=== PATIENT | male | born 1945 | race Caucasian/White ===

== ENCOUNTER 2017-03-28 19:43 | Inpatient (IN) | payer MEDICAID, MEDICARE ==
[~2017-03-28] VITALS: Ht 182.9 cm; Wt 65.7 kg
[~2017-03-28 19:43] MED LIST: ALBU0.63 NEB; ALBU6.7H INH; ASPI-515 PO; BUDE10.2 INH; CARV3.1212 PO; CARV6.2512 PO; CLOP75TA22 PO; DOXY100C15 PO; FLUT1DIS3 INH; FURO80TA77 PO; HYDR12.53 PO; IPRA4AER INH; ISOS30TA19 PO; LEVO750T26 PO; LISI-167 PO; LISI5TAB7 PO; LOPE2TAB59 PO; LORA0.5T PO; LORA1TAB PO; METR500T PO; MIRT15TA4 PO; MISO200T4 PO; OXYC5CAP4 PO; POTA20TA91 PO; PRED20TA PO; SIMV40TA3 PO; TIOT18CA INH
[2017-03-28] MEDS ORDERED: methylPREDNISolone SOD SUCC 125 MG/2 ML ONE (19:54)
[2017-03-28] MEDS ORDERED: MAGNESIUM SULFATE PMX 2GM/50ML 50 ML IVPB ONE (20:00)
[2017-03-28] MEDS ORDERED: methylPREDNISolone SOD SUCC 125 MG/2 ML IVP ONE (20:00)
[2017-03-28] MEDS ORDERED: ALBUTEROL/IPRATROPIUM 2.5MG/0.5MG, 3 ML ONE ×2 (20:00→22:30)
[2017-03-28] MEDS ORDERED: SODIUM CHLORIDE FLUSH 10ML SYR IVF ONE (20:00)
[2017-03-28] MEDS ORDERED: ALBUTEROL/IPRATROPIUM 2.5MG/0.5MG, 3 ML NPPB SCH (20:00)
[2017-03-28 20:12] LABS: ASPARTATE AMINO TRANSFERASE 21 U/L (15-37); BLOOD UREA NITROGEN 21 mg/dL (7-18)
[2017-03-28 20:24] LABS: ABG COLLECTION SITE RIGHT RADIAL; COLLATERAL CIRCULATION TESTING NORMAL
[2017-03-28 20:49] LABS: DIFF TOTAL CELLS COUNTED 100 CELL DIFF
[2017-03-28 20:51] LABS: VERIFY COUNTS? YES
[2017-03-28] MEDS ORDERED: LISI-170 PO (20:51)
[2017-03-28] MEDS ORDERED: CHOL10003 PO (20:51)
[2017-03-28] MEDS ORDERED: BUDE10.2 INH (20:51)
[2017-03-28] MEDS ORDERED: NITR0.4T SL (20:51)
[2017-03-28 20:52] LABS: ANISOCYTOSIS 1+; OVALOCYTES 1+
[2017-03-28 20:56] LABS: LARGE PLATELETS 1+
[2017-03-28] MEDS ORDERED: SODIUM CHLORIDE 0.9% 1,000ML IVBOLUS ONE (21:00)
[2017-03-28] MEDS ORDERED: SODIUM CHLORIDE FLUSH 10ML SYR IVF PRN (21:30)
[2017-03-28] MEDS ORDERED: DEXTROSE 4 GM TAB.CHEW PO PRN (22:00)
[2017-03-28] MEDS: INSULIN ASPART 100 UNITS/ML, PEN SQ-INSULIN SCH (22:00)
[2017-03-28] MEDS: methylPREDNISolone SOD SUCC 125 MG/2 ML IVPush SCH (22:00)
[2017-03-28] MEDS ORDERED: GLUCAGON 1 MG IM PRN (22:00)
[2017-03-28] MEDS ORDERED: NITROGLYCERIN 0.4 MG BOTTLE (25 TABS) SL PRN (22:00)
[2017-03-28] MEDS ORDERED: DEXTROSE 50%, 50ML SYRINGE IVPush PRN (22:00)
[2017-03-28] MEDS: ALBUTEROL/IPRATROPIUM 2.5MG/0.5MG, 3 ML NPPB SCH (22:30)
[2017-03-28] MEDS: ENOXAPARIN 40 MG/0.4 ML SQ SCH (22:30)
[2017-03-28] MEDS ORDERED: PROMETHAZINE 25 MG/ML, 1ML IM PRN (22:30)
[2017-03-28] MEDS ORDERED: FUROSEMIDE 20 MG/2 ML IV ONE (22:30)
[2017-03-28] MEDS ORDERED: ONDANSETRON 2MG/ML, 2ML IVPush PRN (22:30)
[2017-03-28 23:00] VITALS: BP 152/94
[2017-03-28] MEDS: DOXYCYCLINE 100 MG in DEXTROSE 5% 250 ML IV SCH (23:10)
[2017-03-28] MEDS: ACETAMINOPHEN 325 MG TABLET PO PRN (23:42)
[2017-03-29 02:14] LABS: IS PT STATUS REG ER OR PRE ER? NO
[2017-03-29] MEDS: ALBUTEROL/IPRATROPIUM 2.5MG/0.5MG, 3 ML NPPB SCH ×6 (02:17→23:34)
[2017-03-29 04:00] VITALS: BP 120/80
[2017-03-29] MEDS: methylPREDNISolone SOD SUCC 125 MG/2 ML IVPush SCH ×4 (04:12→21:30)
[2017-03-29 04:19] LABS: ABG COLLECTION SITE RIGHT RADIAL; COLLATERAL CIRCULATION TESTING NORMAL
[2017-03-29 04:32] LABS: ASPARTATE AMINO TRANSFERASE 21 U/L (15-37); BLOOD UREA NITROGEN 21 mg/dL (7-18)
[2017-03-29 04:44] LABS: IS PT STATUS REG ER OR PRE ER? NO
[2017-03-29] MEDS: LISINOPRIL 10 MG TABLET PO SCH (08:32)
[2017-03-29] MEDS: CLOPIDOGREL 75 MG TABLET PO SCH (08:33)
[2017-03-29] MEDS: CHOLECALCIFEROL 1,000 UNIT TABLET PO SCH (08:33)
[2017-03-29] MEDS: INSULIN ASPART 100 UNITS/ML, PEN SQ-INSULIN SCH ×4 (08:33→21:13)
[2017-03-29] MEDS: ISOSORBIDE DINITRATE 30 MG TABLET PO SCH (08:33)
[2017-03-29] MEDS ORDERED: FAMOTIDINE 20 MG/2 ML IVPush SCH (09:00)
[2017-03-29] MEDS ORDERED: SODIUM CHLORIDE FLUSH 10ML SYR IVF SCH (09:00)
[2017-03-29] MEDS: DOXYCYCLINE 100 MG in DEXTROSE 5% 250 ML IV SCH (11:08)
[2017-03-29] MEDS: ACETAMINOPHEN 325 MG TABLET PO PRN (17:35)
[2017-03-29] MEDS ORDERED: GLUCAGON 1 MG IM PRN (20:30)
[2017-03-29] MEDS ORDERED: DEXTROSE 50%, 50ML SYRINGE IVPush PRN (20:30)
[2017-03-29] MEDS ORDERED: DEXTROSE 4 GM TAB.CHEW PO PRN (20:30)
[2017-03-29] MEDS: SODIUM CHLORIDE FLUSH 10ML SYR IVF SCH (21:13)
[2017-03-29] MEDS: FAMOTIDINE 20 MG TABLET PO SCH (21:15)
[2017-03-29] MEDS: ENOXAPARIN 40 MG/0.4 ML SQ SCH (21:24)
[2017-03-29] MEDS: DOXYCYCLINE 100MG TABLET PO SCH (23:29)
[2017-03-30] MEDS: ALBUTEROL/IPRATROPIUM 2.5MG/0.5MG, 3 ML NPPB SCH ×6 (04:03→21:18)
[2017-03-30 04:05] VITALS: BP 163/72
[2017-03-30] MEDS: methylPREDNISolone SOD SUCC 125 MG/2 ML IVPush SCH ×4 (04:27→21:33)
[2017-03-30] MEDS: INSULIN ASPART 100 UNITS/ML, PEN SQ-INSULIN SCH ×4 (06:33→20:39)
[2017-03-30] MEDS: FAMOTIDINE 20 MG TABLET PO SCH ×2 (07:38→20:30)
[2017-03-30] MEDS: ISOSORBIDE DINITRATE 30 MG TABLET PO SCH (07:38)
[2017-03-30] MEDS: CHOLECALCIFEROL 1,000 UNIT TABLET PO SCH (07:38)
[2017-03-30] MEDS: LISINOPRIL 10 MG TABLET PO SCH ×3 (07:38→20:36)
[2017-03-30] MEDS: CLOPIDOGREL 75 MG TABLET PO SCH (07:38)
[2017-03-30] MEDS: DOXYCYCLINE 100MG TABLET PO SCH ×2 (11:39→23:15)
[2017-03-30] MEDS: SODIUM CHLORIDE FLUSH 10ML SYR IVF SCH ×2 (11:41→20:30)
[2017-03-30] MEDS: ENOXAPARIN 40 MG/0.4 ML SQ SCH (21:33)
[2017-03-30] MEDS: hydrALAzine 20 MG/ML, 1ML IV PRN (23:36)
[2017-03-31] MEDS: ALBUTEROL/IPRATROPIUM 2.5MG/0.5MG, 3 ML NPPB PRN (00:01)
[2017-03-31] MEDS ORDERED: FENTANYL PF 100 MCG/2ML ONE ×2 (00:22→05:31)
[2017-03-31] MEDS ORDERED: FENTANYL PF 100 MCG/2ML IV ONE ×2 (00:30→05:30)
[2017-03-31] MEDS: ALBUTEROL/IPRATROPIUM 2.5MG/0.5MG, 3 ML NPPB SCH ×6 (03:56→22:05)
[2017-03-31 04:00] VITALS: BP 151/71
[2017-03-31] MEDS: methylPREDNISolone SOD SUCC 125 MG/2 ML IVPush SCH ×4 (04:23→21:27)
[2017-03-31 04:45] LABS: BLOOD UREA NITROGEN 29 mg/dL (7-18)
[2017-03-31] MEDS: hydrALAzine 20 MG/ML, 1ML IV PRN (05:11)
[2017-03-31] MEDS: INSULIN ASPART 100 UNITS/ML, PEN SQ-INSULIN SCH ×4 (07:00→21:15)
[2017-03-31] MEDS: ISOSORBIDE DINITRATE 30 MG TABLET PO SCH (08:58)
[2017-03-31] MEDS: CLOPIDOGREL 75 MG TABLET PO SCH (08:58)
[2017-03-31] MEDS: CHOLECALCIFEROL 1,000 UNIT TABLET PO SCH (08:58)
[2017-03-31] MEDS: LISINOPRIL 10 MG TABLET PO SCH ×2 (08:59→21:12)
[2017-03-31] MEDS: FAMOTIDINE 20 MG TABLET PO SCH ×2 (09:00→21:00)
[2017-03-31] MEDS: SODIUM CHLORIDE FLUSH 10ML SYR IVF SCH ×2 (09:02→21:12)
[2017-03-31] MEDS: ENALAPRILAT 1.25 MG/ML, 2ML IV PRN (09:09)
[2017-03-31] MEDS: HYDROmorphone 2 MG/ML, 1ML IVPush PRN ×2 (11:04→16:22)
[2017-03-31] MEDS: DOXYCYCLINE 100MG TABLET PO SCH ×2 (12:29→23:28)
[2017-03-31] MEDS: ENOXAPARIN 40 MG/0.4 ML SQ SCH (21:27)
[2017-04-01] MEDS: methylPREDNISolone SOD SUCC 125 MG/2 ML IVPush SCH ×4 (04:03→22:38)
[2017-04-01] MEDS: HYDROmorphone 2 MG/ML, 1ML IVPush PRN (04:03)
[2017-04-01 04:13] VITALS: BP 173/80
[2017-04-01] MEDS: INSULIN ASPART 100 UNITS/ML, PEN SQ-INSULIN SCH ×4 (06:23→20:54)
[2017-04-01] MEDS: ALBUTEROL/IPRATROPIUM 2.5MG/0.5MG, 3 ML NPPB SCH ×5 (06:40→21:21)
[2017-04-01] MEDS: ISOSORBIDE DINITRATE 30 MG TABLET PO SCH (07:22)
[2017-04-01] MEDS: FAMOTIDINE 20 MG TABLET PO SCH ×3 (07:22→20:57)
[2017-04-01] MEDS: CLOPIDOGREL 75 MG TABLET PO SCH (07:22)
[2017-04-01] MEDS: LISINOPRIL 10 MG TABLET PO SCH ×3 (07:23→21:14)
[2017-04-01] MEDS: CHOLECALCIFEROL 1,000 UNIT TABLET PO SCH (07:24)
[2017-04-01] MEDS: SODIUM CHLORIDE FLUSH 10ML SYR IVF SCH ×2 (11:50→20:44)
[2017-04-01] MEDS: DOXYCYCLINE 100MG TABLET PO SCH ×2 (11:50→22:39)
[2017-04-01] MEDS: ENOXAPARIN 40 MG/0.4 ML SQ SCH (22:30)
[2017-04-01] MEDS: ENALAPRILAT 1.25 MG/ML, 2ML IV PRN (22:54)
[2017-04-02] MEDS: ALBUTEROL/IPRATROPIUM 2.5MG/0.5MG, 3 ML NPPB PRN (00:29)
[2017-04-02] MEDS: ACETAMINOPHEN 325 MG TABLET PO PRN (00:40)
[2017-04-02] MEDS: ENALAPRILAT 1.25 MG/ML, 2ML IV PRN ×2 (01:13→03:40)
[2017-04-02] MEDS: methylPREDNISolone SOD SUCC 125 MG/2 ML IVPush SCH ×4 (03:45→23:03)
[2017-04-02 04:00] VITALS: BP 148/95
[2017-04-02] MEDS: ALBUTEROL/IPRATROPIUM 2.5MG/0.5MG, 3 ML NPPB SCH ×4 (05:21→15:36)
[2017-04-02] MEDS: INSULIN ASPART 100 UNITS/ML, PEN SQ-INSULIN SCH ×4 (07:00→20:55)
[2017-04-02] MEDS: FAMOTIDINE 20 MG TABLET PO SCH ×2 (08:20→20:52)
[2017-04-02] MEDS: LISINOPRIL 10 MG TABLET PO SCH (08:20)
[2017-04-02] MEDS: CLOPIDOGREL 75 MG TABLET PO SCH (08:20)
[2017-04-02] MEDS: ISOSORBIDE DINITRATE 30 MG TABLET PO SCH (08:21)
[2017-04-02] MEDS: SODIUM CHLORIDE FLUSH 10ML SYR IVF SCH ×2 (08:44→20:52)
[2017-04-02] MEDS: CHOLECALCIFEROL 1,000 UNIT TABLET PO SCH (08:44)
[2017-04-02] MEDS ORDERED: LISINOPRIL 10 MG TABLET PO ONE (09:00)
[2017-04-02] MEDS: LORazepam INTENSOL 2 MG/ML PO PRN ×2 (09:46→21:02)
[2017-04-02] MEDS: DOXYCYCLINE 100MG TABLET PO SCH ×2 (11:18→23:05)
[2017-04-02] MEDS: LISINOPRIL 20 MG TABLET PO SCH (20:53)
[2017-04-02] MEDS: ENOXAPARIN 40 MG/0.4 ML SQ SCH (22:30)
[2017-04-03] MEDS: ACETAMINOPHEN 325 MG TABLET PO PRN (02:33)
[2017-04-03] MEDS: methylPREDNISolone SOD SUCC 125 MG/2 ML IVPush SCH ×4 (03:57→22:33)
[2017-04-03 04:00] VITALS: BP 165/99
[2017-04-03] MEDS: LORazepam INTENSOL 2 MG/ML PO PRN ×3 (06:04→20:06)
[2017-04-03] MEDS: ALBUTEROL/IPRATROPIUM 2.5MG/0.5MG, 3 ML NPPB SCH ×4 (06:47→20:00)
[2017-04-03] MEDS: INSULIN ASPART 100 UNITS/ML, PEN SQ-INSULIN SCH ×4 (07:00→20:53)
[2017-04-03] MEDS: ISOSORBIDE DINITRATE 30 MG TABLET PO SCH (07:47)
[2017-04-03] MEDS: CLOPIDOGREL 75 MG TABLET PO SCH (08:43)
[2017-04-03] MEDS: CHOLECALCIFEROL 1,000 UNIT TABLET PO SCH (08:43)
[2017-04-03] MEDS: LISINOPRIL 20 MG TABLET PO SCH ×2 (08:43→20:50)
[2017-04-03] MEDS: FAMOTIDINE 20 MG TABLET PO SCH ×2 (08:44→20:50)
[2017-04-03] MEDS: RISPERIDONE 1 MG TABLET PO SCH ×2 (08:58→20:50)
[2017-04-03] MEDS: SODIUM CHLORIDE FLUSH 10ML SYR IVF SCH ×2 (10:29→20:49)
[2017-04-03] MEDS: DOXYCYCLINE 100MG TABLET PO SCH ×2 (10:29→22:34)
[2017-04-03] MEDS: ENOXAPARIN 40 MG/0.4 ML SQ SCH (22:30)
[2017-04-04] MEDS: ACETAMINOPHEN 325 MG TABLET PO PRN (02:48)
[2017-04-04 04:00] VITALS: BP 159/65
[2017-04-04] MEDS: methylPREDNISolone SOD SUCC 125 MG/2 ML IVPush SCH ×4 (04:11→23:11)
[2017-04-04] MEDS: LORazepam INTENSOL 2 MG/ML PO PRN ×2 (06:05→23:49)
[2017-04-04] MEDS: ALBUTEROL/IPRATROPIUM 2.5MG/0.5MG, 3 ML NPPB SCH ×3 (06:47→15:32)
[2017-04-04] MEDS: FAMOTIDINE 20 MG TABLET PO SCH ×2 (07:55→20:12)
[2017-04-04] MEDS: CHOLECALCIFEROL 1,000 UNIT TABLET PO SCH (07:56)
[2017-04-04] MEDS: ISOSORBIDE DINITRATE 30 MG TABLET PO SCH (07:56)
[2017-04-04] MEDS: INSULIN ASPART 100 UNITS/ML, PEN SQ-INSULIN SCH ×4 (07:56→20:11)
[2017-04-04] MEDS: CLOPIDOGREL 75 MG TABLET PO SCH (07:56)
[2017-04-04] MEDS: DOXYCYCLINE 100MG TABLET PO SCH ×2 (09:56→23:21)
[2017-04-04] MEDS: LISINOPRIL 20 MG TABLET PO SCH ×2 (09:56→23:12)
[2017-04-04] MEDS: RISPERIDONE 1 MG TABLET PO SCH ×2 (09:57→20:12)
[2017-04-04] MEDS: SODIUM CHLORIDE FLUSH 10ML SYR IVF SCH ×2 (09:57→20:14)
[2017-04-04 13:23] VITALS: BP 191/83
[2017-04-04] MEDS ORDERED: ENALAPRILAT 1.25 MG/ML, 2ML ONE ×2 (13:31→20:00)
[2017-04-04] MEDS: ENALAPRILAT 1.25 MG/ML, 2ML IV PRN ×2 (13:34→20:12)
[2017-04-04 14:41] VITALS: BP 173/79
[2017-04-04] MEDS ORDERED: ALBUTEROL/IPRATROPIUM 2.5MG/0.5MG, 3 ML ONE (15:22)
[2017-04-04] MEDS ORDERED: LORazepam 2 MG/ML, 1ML ONE (20:00)
[2017-04-04 20:36] VITALS: BP 183/84
[2017-04-04] MEDS: ENOXAPARIN 40 MG/0.4 ML SQ SCH (23:11)
[2017-04-04 23:18] VITALS: BP 224/120
[2017-04-04] MEDS ORDERED: hydrALAzine 20 MG/ML, 1ML IV PRN (23:30)
[2017-04-05] MEDS ORDERED: ENALAPRILAT 1.25 MG/ML, 2ML ONE (00:04)
[2017-04-05] MEDS: ALBUTEROL/IPRATROPIUM 2.5MG/0.5MG, 3 ML NPPB SCH ×6 (00:30→23:00)
[2017-04-05] MEDS ORDERED: ALBUTEROL/IPRATROPIUM 2.5MG/0.5MG, 3 ML ONE ×3 (00:34→06:56)
[2017-04-05] MEDS ORDERED: HYDROmorphone 1 MG/ML, 1ML ONE (00:58)
[2017-04-05] MEDS: HYDROmorphone 2 MG/ML, 1ML IVPush PRN ×3 (00:58→21:19)
[2017-04-05] MEDS: ENALAPRILAT 1.25 MG/ML, 2ML IV PRN (00:59)
[2017-04-05 01:09] LABS: ABG COLLECTION SITE RIGHT BRACHIAL
[2017-04-05 01:22] LABS: ASPARTATE AMINO TRANSFERASE 26 U/L (15-37); BLOOD UREA NITROGEN 38 mg/dL (7-18)
[2017-04-05 02:23] LABS: ABG COLLECTION SITE RIGHT BRACHIAL
[2017-04-05 04:44] VITALS: BP 121/66
[2017-04-05] MEDS: methylPREDNISolone SOD SUCC 125 MG/2 ML IVPush SCH ×4 (04:47→20:02)
[2017-04-05 05:58] LABS: ABG COLLECTION SITE LEFT RADIAL; COLLATERAL CIRCULATION TESTING NORMAL
[2017-04-05] MEDS ORDERED: LORazepam 1MG TABLET ONE ×2 (07:36→14:09)
[2017-04-05] MEDS ORDERED: LORazepam INTENSOL 2 MG/ML PO PRN (08:00)
[2017-04-05] MEDS ORDERED: ONDANSETRON 2MG/ML, 2ML IVPush PRN (08:30)
[2017-04-05] MEDS: ENOXAPARIN 40 MG/0.4 ML SQ SCH (08:30)
[2017-04-05] MEDS ORDERED: hydrALAzine 20 MG/ML, 1ML IV PRN (08:30)
[2017-04-05] MEDS ORDERED: GLUCAGON 1 MG IM PRN ×2 (08:30→22:00)
[2017-04-05] MEDS ORDERED: DEXTROSE 4 GM TAB.CHEW PO PRN ×2 (08:30→22:00)
[2017-04-05] MEDS ORDERED: ACETAMINOPHEN 325 MG TABLET PO PRN (08:30)
[2017-04-05] MEDS ORDERED: NITROGLYCERIN 0.4 MG BOTTLE (25 TABS) SL PRN (08:30)
[2017-04-05] MEDS ORDERED: PROMETHAZINE 25 MG/ML, 1ML IM PRN (08:30)
[2017-04-05] MEDS ORDERED: ALBUTEROL/IPRATROPIUM 2.5MG/0.5MG, 3 ML NPPB PRN ×2 (08:30→22:00)
[2017-04-05] MEDS ORDERED: DEXTROSE 50%, 50ML SYRINGE IVPush PRN ×2 (08:30→22:00)
[2017-04-05] MEDS ORDERED: ENALAPRILAT 1.25 MG/ML, 2ML IV PRN (08:30)
[2017-04-05] MEDS: RISPERIDONE 1 MG TABLET PO SCH ×2 (08:58→21:13)
[2017-04-05] MEDS: FAMOTIDINE 20 MG TABLET PO SCH ×2 (08:59→21:13)
[2017-04-05] MEDS: SODIUM CHLORIDE FLUSH 10ML SYR IVF SCH ×2 (09:00→21:13)
[2017-04-05] MEDS: CHOLECALCIFEROL 1,000 UNIT TABLET PO SCH (09:00)
[2017-04-05] MEDS: LISINOPRIL 20 MG TABLET PO SCH ×2 (09:00→21:13)
[2017-04-05] MEDS: DOXYCYCLINE 100MG TABLET PO SCH ×2 (09:01→20:04)
[2017-04-05] MEDS: ISOSORBIDE DINITRATE 30 MG TABLET PO SCH (09:01)
[2017-04-05] MEDS ORDERED: ALBUTEROL/IPRATROPIUM 2.5MG/0.5MG, 3 ML NPPB SCH (11:00)
[2017-04-05] MEDS: CLOPIDOGREL 75 MG TABLET PO SCH (11:16)
[2017-04-05] MEDS: INSULIN ASPART 100 UNITS/ML, PEN SQ-INSULIN SCH ×3 (11:42→21:19)
[2017-04-05] MEDS: LORazepam INTENSOL 2 MG/ML PO PRN ×2 (14:09→21:59)
[2017-04-05] MEDS ORDERED: SODIUM BICARBONATE 4.2%, 5ML ONE (15:00)
[2017-04-06] MEDS: METOPROLOL 1 MG/ML, 5ML IVPush PRN ×2 (00:09→01:55)
[2017-04-06] MEDS: HYDROmorphone 2 MG/ML, 1ML IVPush PRN ×4 (01:55→13:39)
[2017-04-06] MEDS: methylPREDNISolone SOD SUCC 125 MG/2 ML IVPush SCH ×2 (01:55→09:01)
[2017-04-06] MEDS: ALBUTEROL/IPRATROPIUM 2.5MG/0.5MG, 3 ML NPPB SCH ×4 (03:00→11:00)
[2017-04-06 04:58] LABS: BLOOD UREA NITROGEN 44 mg/dL (7-18)
[2017-04-06] MEDS: INSULIN ASPART 100 UNITS/ML, PEN SQ-INSULIN SCH ×2 (07:00→11:00)
[2017-04-06] MEDS: ENOXAPARIN 40 MG/0.4 ML SQ SCH (08:30)
[2017-04-06] MEDS: ISOSORBIDE DINITRATE 30 MG TABLET PO SCH (08:57)
[2017-04-06] MEDS: LISINOPRIL 20 MG TABLET PO SCH (08:58)
[2017-04-06] MEDS: DOXYCYCLINE 100MG TABLET PO SCH (08:58)
[2017-04-06] MEDS: RISPERIDONE 1 MG TABLET PO SCH (08:58)
[2017-04-06] MEDS: CHOLECALCIFEROL 1,000 UNIT TABLET PO SCH (08:58)
[2017-04-06] MEDS: CLOPIDOGREL 75 MG TABLET PO SCH (08:58)
[2017-04-06] MEDS: LORazepam INTENSOL 2 MG/ML PO PRN (08:59)
[2017-04-06] MEDS: FAMOTIDINE 20 MG TABLET PO SCH (09:00)
[2017-04-06] MEDS ORDERED: SODIUM CHLORIDE FLUSH 10ML SYR IVF SCH (09:00)
[2017-04-06] MEDS ORDERED: LORazepam 2 MG/ML, 1ML IVPush PRN (12:00)
[2017-04-06] MEDS ORDERED: HYDROMORPHONE IVPB PRN (13:50)
[2017-04-06] MEDS ORDERED: SODIUM CHLORIDE 0.9% IVPB PRN (13:50)
[2017-04-06] MEDS ORDERED: ATROPINE OPHTH SOLN 1%, 5ML BC PRN (14:00)
[2017-04-06] MEDS ORDERED: HALOPERIDOL 0.5 MG TABLET PO PRN (14:00)
[2017-04-06] MEDS ORDERED: HYDROmorphone 1 MG/ML, 1ML IVPush PRN (14:00)
[2017-04-06] MEDS ORDERED: HALOPERIDOL 5 MG/ML IVPush PRN (14:00)
[2017-04-06] MEDS ORDERED: ATROPINE OPHTH SOLN 1%, 5ML ONE (14:25)
[2017-04-06] MEDS ORDERED: SCOPOLAMINE PATCH, 1.5MG PATCH.TD72 TD PRN (14:30)
[2017-04-06] MEDS: LORazepam INTENSOL 2 MG/ML SL PRN ×3 (14:55→16:53)
== END 2017-04-06 18:19 | disposition expired | DRG 291 ==
LOC: ED 19:48 → EDIP 21:13 → CCU 22:37 → UNDODISIN 04-04 10:00 → 3NW 04-04 11:21 → CCU 04-05 02:51 → 3NW 04-06 17:49
PROVIDERS: ADMIT Internal Medicine; ATTEND Internal Medicine
DX: I11.0 Hypertensive heart disease with heart failure (principal); J96.21 Acute and chronic respiratory failure with hypoxia; J96.22 Acute and chronic respiratory failure with hypercapnia; E87.2 Acidosis; J44.1 Chronic obstructive pulmonary disease with (acute) exacerbation; Z68.1 Body mass index [BMI] 19.9 or less, adult; I50.42 Chronic combined systolic (congestive) and diastolic (congestive) heart failure; E78.5 Hyperlipidemia, unspecified; D75.89 Other specified diseases of blood and blood-forming organs; F41.9 Anxiety disorder, unspecified; I25.10 Atherosclerotic heart disease of native coronary artery without angina pectoris; I25.2 Old myocardial infarction; I73.9 Peripheral vascular disease, unspecified; Z51.5 Encounter for palliative care; Z66 Do not resuscitate; Z79.82 Long term (current) use of aspirin; Z87.891 Personal history of nicotine dependence; Z95.0 Presence of cardiac pacemaker; Z95.1 Presence of aortocoronary bypass graft; Z88.6 Allergy status to analgesic agent; Z99.81 Dependence on supplemental oxygen
CPT/HCPCS: 36415; 36600; 71010; 80048; 80053; 82803; 82962; 83605; 83735; 83880; 84100; 84443; 84484; 85025; 85610; 85730; 87040; 87081; 93005; 93306; 94640; 94660; 96365; 96366; 96375; J1170; J1650; J1815; J3010; J7060; J7620; J0360; J2060; J2930; J3475; J7030; J7050